=== PATIENT | female | born 1995 | race Caucasian/White ===

== ENCOUNTER 2016-09-28 07:40 | Emergency (ER) | payer OTHER ==
--- NOTE | 2016-09-28 08:17 | ED ORDER SUMMARY ---
..... Patient: HALLE BA OrderSheet [facility] VisitID: [id number] [address] [place] [address] 21y, F Registration Date/Time: 09/28/2016 ORDER SHEET Weight: 63.5 kg (stated) Allergies: Penicillins, Sulfa Antibiotics GENERAL ORDERS: Ankle 3 or 4V Left Urgent (07:58 09/28/2016 [facility]) (Ack 7:59 Sona) (8:33 MWinterer R.N.) Crutches (after x-ray) (08:01 09/28/2016 [facility] DO) (8:29 Sona) Splint (LE) (Left) (Air Splint) (ankle) (08:16 09/28/2016 [facility]) (8:29 OHshon) MEDICATION ORDERS: Acetaminophen PO 1,000 mg (NOW) (07:58 09/28/2016 [facility] ) (Ack 8:26 Shane) (8:33 MWinterer R.N.) IV FLUIDS: ORDER SHEET NOTES: [Electronically signed by Yehuda Loredo DO (09:04 09/28/2016)] [Electronically signed by Joni Ivan (09:50 09/28/2016)] [Electronically locked/signed by Joni Ivan (09:50 09/28/2016)]
--- NOTE | 2016-09-28 08:17 | ED CLINICAL REPORT ---
Clinical Report - Physicians/Mid Levels [facility] [address] [place] [address] 09/28/2016 7:43 Patient: HALLE BA Time Seen: 07:49. Arrived- By private vehicle. Historian- patient. HISTORY OF PRESENT ILLNESS Chief Complaint: Injury to the left ankle. The injury happened yesterday. The patient sustained a twisting injury (she is not sure, but likely twisted when wrestling and another individual's elbow struck the ankle). She sustained a direct blow (Pt was wrestling with someone when they fell on her ankle with their elbow). Occurred at home. Patient is experiencing moderate pain. Patient denies injury to the head or neck. No other injury. REVIEW OF SYSTEMS The patient complains of pain on weight bearing. She has had swelling of the left ankle. No tingling, weakness, numbness, suspected foreign body or skin laceration. PAST HISTORY See nurses notes. Epilepsy. Medications: None. Allergies: Penicillins. Sulfa Antibiotics. SOCIAL HISTORY Smoker- current status unknown. Occasional alcohol use. No drug use. Residence: [place]. ADDITIONAL NOTES The nursing notes have been reviewed. PHYSICAL EXAM Vital Signs: 09/28/2016 07:50 BP: 134/86. HR: 87. RR: 14. O2 saturation: 98%. Temp: 98.5 F. Appearance: Alert. Oriented X3. No acute distress. Head: Head atraumatic. Eyes: Eyes normal inspection. No scleral icterus or pale conjunctivae. ENT: Nose normal. No injury to the nose. Neck: Normal inspection. Neck supple. CVS: Normal heart rate and rhythm. Heart sounds normal. Pulses normal. Respiratory: No respiratory distress. Breath sounds normal. Chest nontender. Abdomen: No visible injury. Back: Normal inspection. Skin: Skin intact. Skin warm and dry. Extremities: Left medial ankle: moderate tenderness of the medial ligaments and medial malleolus. Limited ROM secondary to pain. Neurovascular intact distally. No erythema, swelling, laceration, abrasion or puncture wound. No foreign body or deformity. Left posterior ankle. No tenderness or swelling. Left lateral ankle: moderate tenderness and mild swelling of the lateral ligaments and lateral malleolus. Limited ROM secondary to pain. Neurovascular intact distally. No ligamentous laxity present. No erythema, laceration, abrasion, ecchymosis or puncture wound. No foreign body or deformity. Left foot. No tenderness. No signs of infection present in the feet or ankles. No foot injury. Extremities otherwise negative. ( no proximal fibular tenderness). Neuro, Vascular and Tendons: Vascular status intact. No pulse deficit present. Sensation intact. Motor intact. No sensory deficit. Gait: Limping gait. Neuro: Oriented X 3. No motor deficit. LABS, X-RAYS, AND EKG Lt Ankle X-ray: No fracture. Normal alignment. No bony lesion, air in the soft tissue or foreign body. Soft tissues normal. Joint spaces normal. Views: AP, lateral, mortise and oblique. Technique: good. The X-rays were interpreted contemporaneously by me. Pulse Oximetry: 09/28/2016 07:50 O2 saturation: 98%. (FIO2 - room air). Interpretation: normal. PROGRESS AND PROCEDURES Splint Application: Stirrup velcro air splint applied to left ankle. Splint applied by tech with direct supervision by the ED physician. Reassessed extremity following splint application. Neurovascular intact. Course of Care: Acetaminophen 1000 mg PO given. Patient/family counseled. Prior records not ordered. Disposition: Discharged. Condition: stable and improved. CLINICAL IMPRESSION Sprain of the calcaneofibular and talofibular ligament of the left ankle. Contusion to the left ankle. INSTRUCTIONS Apply ice. Use crutches until better and until released. Wear splint. Elevate affected areas above chest level. You may walk and bear weight as tolerated. Warnings: GENERAL WARNINGS: Return or contact your physician immediately if your condition worsens or changes unexpectedly, if not improving as expected, or if other problems arise. OTC Medications: Acetaminophen (available over the counter): take according to label instructions. Motrin (available over the counter): take according to label instructions. Follow-up: Follow up with your doctor in about three days. (Electronically signed by Yehuda Loredo DO 09/28/2016 9:04)
--- NOTE | 2016-09-28 08:17 | ED NURSING NOTES ---
Clinical Report - Nurses [facility] [address] [place] [address] 09/28/2016 7:43 [id number] TRI[facility] Triage time 07:50 Sep 28 2016. Acuity: LEVEL 2. Chief Complaint: INJURY TO LEFT ANKLE. ( Pt states she is able to bare some weight on left ankle.). SEPSIS SCREEN: Sepsis Screen: negative. Negative (no infection suspected/documented). EMERSON COMA SCORE: [place] Coma Scale: 15- eyes open spontaneously (4); best verbal response- oriented x 4 (5); best motor response- obeys commands (6). --07:58 AliM 07:50 09/28/16. BP: 134/86. HR: 87. RR: 14. O2 saturation: 98%. Temp: 98.5 F. --07:58 AliM 07:50 09/28/16. Pain level now: 05/23. --09:50 AliM. Weight: 63.5 kg stated. Height/Length: 63 inches Per Patient. BMI: 24.8. --07:56 AliM. Medications None. --07:51 AliM. Allergies Penicillins. --07:52 AliM Sulfa Antibiotics. --07:52 AliM. History Arrived by private vehicle. Historian: patient. Accompanied by friend. Primary physician (none). This occurred yesterday. Mechanism of injury: (Pt was wrestling with someone when they fell on her ankle with their elbow). She has had tingling. No numbness. Treatment STEAMTABLE ATTENDANT RAILROAD: Ice. PAST MEDICAL HX: Last normal menstrual period- Currently menstrating. Tetanus immunization status is not up-to-date. Immunizations not up to date. SOCIAL HX: Light tobacco smoker- less than 1/2 a pack per day. Occasional alcohol use. No drug use. No infectious disease exposure. ABUSE ASSESSMENT: No report of abuse. NUTRITIONAL RISK ASSESSMENT: The nutritional risk assessment revealed no deficiencies. FUNCTIONAL ASSESSMENT: Functional assessment: no impairments noted. LEARNING NEEDS ASSESSMENT: The learning needs assessment revealed no barriers. FALL RISK ASSESSMENT: Fall risk assessment completed. Risk factors identified include patient impairment of mobility. Fall interventions initiated. Side rails up x1. Brakes on Bed in low position. Patient identified as a fall risk by ID band. Instructed not to get up without assistance. SKIN INTEGRITY ASSESSMENT: Skin integrity risk assessment completed. No skin integrity risk identified. --07:58 AliM. PROBLEMS: Epilepsy. --07:53 AliM. Interventions ID band on patient. To treatment room. --07:58 AliM. PHYSICAL ASSESSMENT To room via wheelchair. GENERAL / NEURO / PSYCH: Oriented X 4. Alert. Appears in no acute distress. EXTREMITIES: Capillary refill is less than 2 seconds in the extremities. Extremity pulses are within normal limits. Left ankle: swelling. Limited ROM secondary to weakness (diminished plantar flexion and dorsiflexion). SKIN: Skin intact. Skin is warm and dry. --07:55 AliM. NURSING PROGRESS NOTES The plan of care for this patient has been created. Cold pack applied. Reassurance given. Two patient identifiers checked. Call light placed in reach. Side rails up x 1. Bed placed in lowest position. Brakes of bed on. Patient ready for evaluation- ED physician notified. --07:58 AliM 08:23 09/28/2016 Acetaminophen (APAP) PO 1000 mg given. Allergies verified and confirmed 5 rights. --08:33 Nikky Ahuja R.N. DISPOSITION / DISCHARGE Departure time: 08:30 Sep 28 2016. Condition at departure: unchanged and stable. Fall risk assessment completed; Pt using crutches, boyfriend helping walk to car. No learning barriers present. Discharge instructions provided and reviewed with the patient. Reviewed crutch walking and splint care instructions (Ice, rest, elevation). She has no activity restrictions (Use crutches). Patient verbalized understanding. Written instructions provided in [place]. The patient was discharged by the physician. She was discharged home and accompanied by neck band operator. She left the Emergency Department on crutches and via private vehicle. Criminal Defense Lawyer driving. --08:38 AliM 08:35 09/28/16. BP: 106/67 taken on the left arm, while sitting. HR: 78. RR: 14 (regular and unlabored). O2 saturation: 98%. Temp: 98.1 F. Pain level now: 05/23. --08:38 AliM. Locked/Released at 09/28/2016 9:50 by Alina,
--- NOTE | 2016-09-28 08:17 | ED ORDER SUMMARY ---
..... Patient: HALLE BA OrderSheet [facility] VisitID: [id number] [address] [place] [address] 21y, F Registration Date/Time: 09/28/2016 ORDER SHEET Weight: 63.5 kg (stated) Allergies: Penicillins, Sulfa Antibiotics GENERAL ORDERS: Ankle 3 or 4V Left Urgent (07:58 09/28/2016 [facility]) (Ack 7:59 Sona) (8:33 MWinterer R.N.) Crutches (after x-ray) (08:01 09/28/2016 [facility] DO) (8:29 Sona) Splint (LE) (Left) (Air Splint) (ankle) (08:16 09/28/2016 [facility]) (8:29 OHshon) MEDICATION ORDERS: Acetaminophen PO 1,000 mg (NOW) (07:58 09/28/2016 [facility] ) (Ack 8:26 Shane) (8:33 MWinterer R.N.) IV FLUIDS: ORDER SHEET NOTES: [Electronically signed by Yehuda Loredo DO (09:04 09/28/2016)] [Electronically signed by Joni Ivan (09:50 09/28/2016)] [Electronically locked/signed by Joni Ivan (09:50 09/28/2016)]
--- NOTE | 2016-09-28 08:17 | ED NURSING NOTES ---
Clinical Report - Nurses [facility] [address] [place] [address] 09/28/2016 7:43 [id number] TRI[facility] Triage time 07:50 Sep 28 2016. Acuity: LEVEL 2. Chief Complaint: INJURY TO LEFT ANKLE. ( Pt states she is able to bare some weight on left ankle.). SEPSIS SCREEN: Sepsis Screen: negative. Negative (no infection suspected/documented). EMERSON COMA SCORE: [place] Coma Scale: 15- eyes open spontaneously (4); best verbal response- oriented x 4 (5); best motor response- obeys commands (6). --07:58 AliM 07:50 09/28/16. BP: 134/86. HR: 87. RR: 14. O2 saturation: 98%. Temp: 98.5 F. --07:58 AliM 07:50 09/28/16. Pain level now: 05/23. --09:50 AliM. Weight: 63.5 kg stated. Height/Length: 63 inches Per Patient. BMI: 24.8. --07:56 AliM. Medications None. --07:51 AliM. Allergies Penicillins. --07:52 AliM Sulfa Antibiotics. --07:52 AliM. History Arrived by private vehicle. Historian: patient. Accompanied by friend. Primary physician (none). This occurred yesterday. Mechanism of injury: (Pt was wrestling with someone when they fell on her ankle with their elbow). She has had tingling. No numbness. Treatment FRONT MAKER: Ice. PAST MEDICAL HX: Last normal menstrual period- Currently menstrating. Tetanus immunization status is not up-to-date. Immunizations not up to date. SOCIAL HX: Light tobacco smoker- less than 1/2 a pack per day. Occasional alcohol use. No drug use. No infectious disease exposure. ABUSE ASSESSMENT: No report of abuse. NUTRITIONAL RISK ASSESSMENT: The nutritional risk assessment revealed no deficiencies. FUNCTIONAL ASSESSMENT: Functional assessment: no impairments noted. LEARNING NEEDS ASSESSMENT: The learning needs assessment revealed no barriers. FALL RISK ASSESSMENT: Fall risk assessment completed. Risk factors identified include patient impairment of mobility. Fall interventions initiated. Side rails up x1. Brakes on Bed in low position. Patient identified as a fall risk by ID band. Instructed not to get up without assistance. SKIN INTEGRITY ASSESSMENT: Skin integrity risk assessment completed. No skin integrity risk identified. --07:58 AliM. PROBLEMS: Epilepsy. --07:53 AliM. Interventions ID band on patient. To treatment room. --07:58 AliM. PHYSICAL ASSESSMENT To room via wheelchair. GENERAL / NEURO / PSYCH: Oriented X 4. Alert. Appears in no acute distress. EXTREMITIES: Capillary refill is less than 2 seconds in the extremities. Extremity pulses are within normal limits. Left ankle: swelling. Limited ROM secondary to weakness (diminished plantar flexion and dorsiflexion). SKIN: Skin intact. Skin is warm and dry. --07:55 AliM. NURSING PROGRESS NOTES The plan of care for this patient has been created. Cold pack applied. Reassurance given. Two patient identifiers checked. Call light placed in reach. Side rails up x 1. Bed placed in lowest position. Brakes of bed on. Patient ready for evaluation- ED physician notified. --07:58 AliM 08:23 09/28/2016 Acetaminophen (APAP) PO 1000 mg given. Allergies verified and confirmed 5 rights. --08:33 Nikky Ahuja R.N. DISPOSITION / DISCHARGE Departure time: 08:30 Sep 28 2016. Condition at departure: unchanged and stable. Fall risk assessment completed; Pt using crutches, boyfriend helping walk to car. No learning barriers present. Discharge instructions provided and reviewed with the patient. Reviewed crutch walking and splint care instructions (Ice, rest, elevation). She has no activity restrictions (Use crutches). Patient verbalized understanding. Written instructions provided in [place]ian. The patient was discharged by the physician. She was discharged home and accompanied by hogshead builder. She left the Emergency Department on crutches and via private vehicle. Him Director driving. --08:38 AliM 08:35 09/28/16. BP: 106/67 taken on the left arm, while sitting. HR: 78. RR: 14 (regular and unlabored). O2 saturation: 98%. Temp: 98.1 F. Pain level now: 05/23. --08:38 AliM. Locked/Released at 09/28/2016 9:50 by Alina,
--- NOTE | 2016-09-28 09:45 | DIAGNOSTIC IMAGING REPORT ---
PROCEDURE: XR ANKLE 3 OR 4 VIEWS - LEFT INDICATION: TRAUMA/INJURY TECHNIQUE: Four views of the left ankle. COMPARISON: None. FINDINGS: Normal mineralization. No fractures. Ankle mortise intact. Normal osseous alignment. Small tibiotalar joint effusion. No suspicious soft-tissue calcification or radiodense foreign bodies. Achilles tendon appears grossly normal. Mild lateral soft tissue swelling. IMPRESSION: 1. Lateral soft tissue swelling and small ankle joint effusion suggestive of sprain. 2. No underlying fractures.
--- NOTE | 2016-09-28 09:50 | ED MAR SUMMARY ---
..... Medication Administration Record [facility] [address] [place] [address] Patient: HALLE BA Visit ID: [id number] 21y, F Weight: 63.5 kg Height/Length: 63 in BMI: 24.8 ALLERGIES: Sulfa Antibiotics, Penicillins Given 08:23 09/28/2016 Nikky Ahuja R.N. Medication Administered: ACETAMINOPHEN [PO] (APAP), Dose: 1000 mg PO. Medication Ordered: Acetaminophen PO 1,000 mg (NOW).
--- NOTE | 2016-09-28 09:50 | ED MAR SUMMARY ---
..... Medication Administration Record [facility] [address] [place] [address] Patient: HALLE BA Visit ID: [id number] 21y, F Weight: 63.5 kg Height/Length: 63 in BMI: 24.8 ALLERGIES: Sulfa Antibiotics, Penicillins Given 08:23 09/28/2016 Nikky Ahuja R.N. Medication Administered: ACETAMINOPHEN [PO] (APAP), Dose: 1000 mg PO. Medication Ordered: Acetaminophen PO 1,000 mg (NOW).
--- NOTE | 2016-09-28 09:50 | ED MED RECONCILIATION SUMMARY ---
Patient: HALLE BA Medication Reconciliation Report [facility] VisitID: [id number] [place] [address] 21y, F Registration Date/Time: 09/28/2016 Weight: 63.5 kg Height/Length: 63 in. BMI: 24.8 ALLERGIES: Penicillins, Sulfa Antibiotics The patient's Home Medications are listed below: NONE. The source(s) of the original Home Medication information: Not obtained. The following Medications were given to the patient in the Emergency Department: Acetaminophen [PO] PO 1000 mg, administered: 09/28/2016 8:23:00 AM The following Medications were prescribed to the patient: Acetaminophen (available over the counter): take according to label instructions. -- Yehuda Loredo DO Motrin (available over the counter): take according to label instructions. -- Yehuda Loredo DO
--- NOTE | 2016-09-28 09:50 | ED DISCHARGE INSTRUCTIONS ---
Patient: HALLE BA General Instructions [facility] VisitID: [id number] [place] [address] 21y, F Registration Date/Time: 09/28/2016 Sprain of the calcaneofibular and talofibular ligament of the left ankle. Contusion to the left ankle. INSTRUCTIONS Apply ice. Use crutches until better and until released. Wear splint. Elevate affected areas above chest level. You may walk and bear weight as tolerated. Warnings: GENERAL WARNINGS: Return or contact your physician immediately if your condition worsens or changes unexpectedly, if not improving as expected, or if other problems arise. OTC Medications: Acetaminophen (available over the counter): take according to label instructions. Motrin (available over the counter): take according to label instructions. Follow-up: Follow up with your doctor in about three days. ADDITIONAL INFORMATION Sprain, Ankle,With X-Ray A sprain is an injury to the ligaments or capsule that holds a joint together. There are no broken bones. Most sprains take from four to six weeks to heal. If the ligament is completely torn (severe sprain), it can take several months to recover. Mild to moderate sprains may be treated with an elastic wrap or an in-shoe splint to provide support and prevent re-injury. A mild sprain may not require any additional support. A severe sprain may require surgery to repair. Home care The following guidelines will help you care for your injury at home: Stay off the injured leg as much as possible until you can walk on it without pain. If you have a lot of pain with walking, crutches or a walker may be prescribed. (These can be rented or purchased at many pharmacies and surgical or orthopedic supply stores). Follow your doctor's advice regarding when to begin bearing weight on that leg. Keep your leg elevated to reduce pain and swelling. When sleeping, place a pillow under the injured leg. When sitting, support the injured leg so it is level with your waist. This is very important during the first 48 hours. Apply an ice pack (ice cubes in a plastic bag, wrapped in a towel) over the injured area for 20 minutes every 12 hours the first day. You can place the ice pack directly over the splint/cast. If you were given a boot, open it to apply the ice pack. Continue with ice packs 34 times a day for the next two days, then as needed for the relief of pain and swelling. You may use acetaminophen or ibuprofen to control pain, unless another pain medicine was prescribed. If you have chronic liver or kidney disease or ever had a stomach ulcer or GI bleeding, talk with your doctor before using these medicines. You may return to sports after healing, when you can run without pain. A sprained ankle is at risk for re-injury during the first six weeks. During that time, protect your ankle with an in-shoe splint that prevents tilting of your ankle from side to side. This is very important if you do active work or play sports during that time. Follow-up care Any X-rays you had today dont show any broken bones, breaks, or fractures. Sometimes fractures dont show up on the first X-ray. Bruises and sprains can sometimes hurt as much as a fracture. These injuries can take time to heal completely. If your symptoms dont improve or they get worse, talk with your doctor. You may need a repeat X-ray. When to seek medical care Get prompt medical attention if any of the following occur: The plaster cast or splint gets wet or soft The fiberglass cast or splint gets wet and does not dry for 24 hours Pain or swelling increases, or redness appears Toes become cold, blue, numb or tingly Re-injure your ankle Contusion:Lower Extremity You have a CONTUSION of your LOWER extremity (leg, knee, ankle, foot, or toes). This causes local pain, swelling and sometimes bruising. There are no broken bones. This injury may take from a few days to a few weeks to heal. Home Care: 1) Keep your leg elevated to reduce pain and swelling. When sleeping, place a pillow under the injured leg. When sitting, support the injured leg so it is level with your waist. This is very important during the first 48 hours. 2) If CRUTCHES have been advised, do not bear full weight on the injured leg until you can do so without pain. You may return to sports when you are able to hop and run on the injured leg without pain. 3) Apply an ice pack (ice cubes in a plastic bag, wrapped in a towel) over the injured area for 20 minutes every 1-2 hours the first day for pain relief. Continue this 3-4 times a day until the pain and swelling goes away. 4) You may use acetaminophen (Tylenol) or ibuprofen (Motrin, Advil) to control pain, unless another pain medicine was prescribed. [ NOTE : If you have chronic liver or kidney disease or ever had a stomach ulcer or GI bleeding, talk with your doctor before using these medicines.] Follow Up with your doctor or this facility if you are not starting to improve within the next THREE days. [NOTE: If X-rays were taken, they will be reviewed by a radiologist. You will be notified of any new findings that may affect your care.] Get Prompt Medical Attention if any of the following occur: -- Pain or swelling increases -- Toes become cold, blue, numb or tingly -- Redness, warmth or drainage from the skin Crutch Walking Crutch Adjustment Make sure the crutches you use are adjusted to fit you. When you stand, there should be room to fit 2-3 fingers between the top of the crutch and your armpit. Your elbow should be slightly bent when holding the hand paperhanger apprentice. Crutch Walking: Place the crutches forward 12" in front of and 6" to the side of your feet. Lean your weight forward as you push down on the handgrips. Your weight should be on your hands and yourstrong leg, not your armpits . Let your body swing through, landing on the strong leg. Advance the crutches forward again. The crutch and the injured leg should move together. Going Up Steps: ("Up with the good") With both crutches on the same step as your feet, push down on the handgrips. Balancing with very light pressure on the weak leg, let your hands support your weight as you raise your strong leg onto the next higher step. Transfer all your weight to your strong leg (still bent) as you move the crutches up to the next step alongside the strong leg. With your weight evenly balanced on the two crutches and your strong leg, straighten your strong knee as you raise the weak leg up to the next step. Going Down Steps: ("Down with the bad") With both crutches on the same step as your feet, push down on the handgrips. With your weight evenly balanced on the two crutches and your strong leg, bend your strong knee as you lower the weak leg down to the next step. Let your strong leg support you (still bent) as you move the crutches down alongside the weak leg. Transfer your weight to your hands, balancing with very light pressure on the weak leg as you lower your strong leg alongside your weak leg. Acetaminophen Oral tablet What is this medicine? ACETAMINOPHEN (a set a RHODA larry fen) is a pain reliever. It is used to treat mild pain and fever. How should I use this medicine? Take this medicine by mouth with a glass of water. Follow the directions on the package or prescription label. Take your medicine at regular intervals. Do not take your medicine more often than directed. Talk to your unhairing machine operator regarding the use of this medicine in children. While this drug may be prescribed for children as young as 6 years of age for selected conditions, precautions do apply. What side effects may I notice from receiving this medicine? Side effects that you should report to your doctor or health youth career specialist as soon as possible: allergic reactions like skin rash, itching or hives, swelling of the face, lips, or tongue breathing problems fever or sore throat redness, blistering, peeling or loosening of the skin, including inside the mouth trouble passing urine or change in the amount of urine unusual bleeding or bruising unusually weak or tired yellowing of the eyes or skin Side effects that usually do not require medical attention (report to your doctor or health youth career specialist if they continue or are bothersome): headache nausea, stomach upset What may interact with this medicine? alcohol imatinib isoniazid other medicines with acetaminophen What if I miss a dose? If you miss a dose, take it as soon as you can. If it is almost time for your next dose, take only that dose. Do not take double or extra doses. Where should I keep my medicine? Keep out of reach of children. Store at room temperature between 20 and 25 degrees C (68 and 77 degrees F). Protect from moisture and heat. Throw away any unused medicine after the expiration date. What should I tell my health care provider before I take this medicine? They need to know if you have any of these conditions: if you frequently drink alcohol containing drinks liver disease an unusual or allergic reaction to acetaminophen, other medicines, foods, dyes or preservatives or trying to get breast-feeding What should I watch for while using this medicine? Tell your doctor or health youth career specialist if the pain lasts more than 10 days (5 days for children), if it gets worse, or if there is a new or different kind of pain. Also, check with your doctor if a fever lasts for more than 3 days. Do not take other medicines that contain acetaminophen with this medicine. Always read labels carefully. If you have questions, ask your doctor or pharmacist. If you take too much acetaminophen get medical help right away. Too much acetaminophen can be very dangerous and cause liver damage. Even if you do not have symptoms, it is important to get help right away. Ibuprofen Oral tablet What is this medicine? IBUPROFEN (eye BYOO proe fen) is a non-steroidal anti-inflammatory drug (NSAID). It is used for dental pain, fever, headaches or migraines, osteoarthritis, rheumatoid arthritis, or painful monthly periods. It can also relieve minor aches and pains caused by a cold, flu, or sore throat. How should I use this medicine? Take this medicine by mouth with a glass of water. Follow the directions on the prescription label. Take this medicine with food if your stomach gets upset. Try to not lie down for at least 10 minutes after you take the medicine. Take your medicine at regular intervals. Do not take your medicine more often than directed. A special MedGuide will be given to you by the pharmacist with each prescription and refill. Be sure to read this information carefully each time. Talk to your unhairing machine operator regarding the use of this medicine in children. Special care may be needed. What side effects may I notice from receiving this medicine? Side effects that you should report to your doctor or health youth career specialist as soon as possible: allergic reactions like skin rash, itching or hives, swelling of the face, lips, or tongue black or bloody stools, blood in the urine or in vomit breathing problems changes in vision chest pain general ill feeling or flu-like symptoms nausea or vomiting redness, blistering, peeling or loosening of the skin, including inside the mouth slurred speech or weakness on one side of the body stomach pain unexplained weight gain or swelling unusually weak or tired yellowing of eyes or skin Side effects that usually do not require medical attention (report to your doctor or health youth career specialist if they continue or are bothersome): constipation or diarrhea dizziness gas or heartburn stomach upset What may interact with this medicine? Do not take this medicine with any of the following medications: cidofovir ketorolac methotrexate pemetrexed This medicine may also interact with the following medications: alcohol aspirin diuretics lithium other drugs for inflammation like prednisone warfarin What if I miss a dose? If you miss a dose, take it as soon as you can. If it is almost time for your next dose, take only that dose. Do not take double or extra doses. Where should I keep my medicine? Keep out of the reach of children. Store at room temperature between 15 and 30 degrees C (59 and 86 degrees F). Keep container tightly closed. Throw away any unused medicine after the expiration date. What should I tell my health care provider before I take this medicine? They need to know if you have any of these conditions: asthma cigarette smoker drink more than 3 alcohol containing drinks a day heart disease or circulation problems such as heart failure or leg edema (fluid retention) high blood pressure kidney disease liver disease stomach bleeding or ulcers an unusual or allergic reaction to ibuprofen, aspirin, other NSAIDS, other medicines, foods, dyes, or preservatives or trying to get breast-feeding What should I watch for while using this medicine? Tell your doctor or healthcare professional if your symptoms do not start to get better or if they get worse. This medicine does not prevent heart attack or stroke. In fact, this medicine may increase the chance of a heart attack or stroke. The chance may increase with longer use of this medicine and in people who have heart disease. If you take aspirin to prevent heart attack or stroke, talk with your doctor or health youth career specialist. Do not take other medicines that contain aspirin, ibuprofen, or naproxen with this medicine. Side effects such as stomach upset, nausea, or ulcers may be more likely to occur. Many medicines available without a prescription should not be taken with this medicine. This medicine can cause ulcers and bleeding in the stomach and intestines at any time during treatment. Ulcers and bleeding can happen without warning symptoms and can cause . To reduce your risk, do not smoke cigarettes or drink alcohol while you are taking this medicine. You may get drowsy or dizzy. Do not drive, use machinery, or do anything that needs mental alertness until you know how this medicine affects you. Do not stand or sit up quickly, especially if you are an older patient. This reduces the risk of dizzy or fainting spells. This medicine can cause you to bleed more easily. Try to avoid damage to your teeth and gums when you brush or floss your teeth. You have been given the following additional information: Sprain, Ankle, With X-Ray Contusion, Lower Extremity Crutch Walking Acetaminophen Oral tablet Ibuprofen Oral tablet You may walk and bear weight as tolerated. (Electronically signed by Yehuda Loredo DO 09/28/2016 9:04)
--- NOTE | 2016-09-28 09:50 | ED MED RECONCILIATION SUMMARY ---
Patient: HALLE BA Medication Reconciliation Report [facility] VisitID: [id number] [place] [address] 21y, F Registration Date/Time: 09/28/2016 Weight: 63.5 kg Height/Length: 63 in. BMI: 24.8 ALLERGIES: Penicillins, Sulfa Antibiotics The patient's Home Medications are listed below: NONE. The source(s) of the original Home Medication information: Not obtained. The following Medications were given to the patient in the Emergency Department: Acetaminophen [PO] PO 1000 mg, administered: 09/28/2016 8:23:00 AM The following Medications were prescribed to the patient: Acetaminophen (available over the counter): take according to label instructions. -- Yehuda Loredo DO Motrin (available over the counter): take according to label instructions. -- Yehuda Loredo DO
== END 2016-09-28 08:30 | disposition home or self-care (01) ==
LOC: ED SRH 07:40
DX: S93.412A Sprain of calcaneofibular ligament of left ankle, initial encounter (principal); S93.492A Sprain of other ligament of left ankle, initial encounter; W50.0XXA Accidental hit or strike by another person, initial encounter; Y93.83 Activity, rough housing and horseplay; Y99.9 Unspecified external cause status; Y92.009 Unspecified place in unspecified non-institutional (private) residence as the place of occurrence of the external cause; Z88.0 Allergy status to penicillin; Z88.2 Allergy status to sulfonamides